=== PATIENT | male | born 1970 | race African-American/Black ===

== ENCOUNTER 2018-01-09 09:44 | Emergency (ER) | payer OTHER ==
[~2018-01-09] VITALS: Ht 175.3 cm; Wt 122.7 kg
[~2018-01-09 09:44] MED LIST: AZIT500T4 PO; COMBISP IH
[2018-01-09 09:46] VITALS: BP 160/109
[2018-01-09] MEDS ORDERED: HYDR25TA PO (09:52)
== END 2018-01-09 10:30 | disposition home or self-care (01) ==
LOC: EMS 09:45
DX: H00.015 Hordeolum externum left lower eyelid (principal); I10 Essential (primary) hypertension; F17.210 Nicotine dependence, cigarettes, uncomplicated
CPT/HCPCS: 99283

== ENCOUNTER 2019-05-02 03:12 | Emergency (ER) | payer MEDICAID ==
[~2019-05-02] VITALS: Ht 175.3 cm; Wt 125.0 kg
[~2019-05-02 03:12] MED LIST changes: -AZIT500T4 PO; -COMBISP IH; +HYDR25TA PO
[2019-05-02 04:15] LABS: BASOPHILS % (AUTO) 1.6 % (0.0-2.0); EOSINOPHILS % (AUTO) 1.3 % (1.0-6.0); HEMATOCRIT 43.4 % (41-53); HEMOGLOBIN 14.6 g/dL (13.5-17.5); LYMPHOCYTES # (AUTO) 1.2 K/uL (1.0-4.8); LYMPHOCYTES % (AUTO) 22.5 % (22.0-44.0); MEAN CORPUSCULAR HEMOGLOBIN 28.7 pg (26.0-34.0); MEAN CORPUSCULAR HGB CONC 33.7 G/dL (31.0-37.0); MEAN CORPUSCULAR VOLUME 85 fL (80-100); MONOCYTES # (AUTO) 0.4 K/uL (0.1-1.0); MONOCYTES % (AUTO) 6.7 % (2.0-9.0); NEUTROPHILS # (AUTO) 3.5 K/uL (1.8-7.7); NEUTROPHILS % (AUTO) 67.9 % (40.0-70.0); PLATELET COUNT (AUTO) 271 K/uL (150-450); RED BLOOD CELL COUNT(AUTO) 5.09 MIL/uL (4.50-5.90)
[2019-05-02 04:25] LABS: ANION GAP 8 mmol/L (8-16); CARBON DIOXIDE 28 mmol/L (22-29); CHLORIDE 103 mmol/L (98-107); CREATININE 1.02 mg/dL (0.60-1.30); GLOMERULAR FILTR. RATE CALC > 60 mL/min (>60); GLUCOSE,RANDOM 125 mg/dL (70-110); POTASSIUM 3.9 mmol/L (3.5-5.1); SODIUM SERUM 139 mmol/L (136-145); UREA NITROGEN, BLOOD 11 mg/dL (7-18)
[2019-05-02 04:31] LABS: ALANINE AMINOTRANSFERASE 27 U/L (12-78); ALBUMIN 3.7 g/dL (3.4-5.0); ALKALINE PHOSPHATASE 61 U/L (46-116); ASPARTATE AMINOTRANSFERASE 12 U/L (15-37); BILIRUBIN,TOTAL 0.3 mg/dL (0.1-1.0); TOTAL PROTEIN, SERUM 7.4 g/dL (6.4-8.2)
[2019-05-02 04:32] LABS: B-TYPE NATRIURETIC PEPTIDE 19 pg/mL (0-100)
[2019-05-02 06:00] VITALS: BP 143/82
== END 2019-05-02 07:54 | disposition home or self-care (01) ==
LOC: EMS 03:13
DX: J06.9 Acute upper respiratory infection, unspecified (principal); I48.91 Unspecified atrial fibrillation; I10 Essential (primary) hypertension; F17.210 Nicotine dependence, cigarettes, uncomplicated
CPT/HCPCS: 85379; 93005

== ENCOUNTER 2021-04-27 02:00 | Emergency (ER) | payer MEDICAID ==
[~2021-04-27] VITALS: Ht 175.3 cm; Wt 125.0 kg
[~2021-04-27 02:00] MED LIST changes: -HYDR25TA PO; +HYDR25TA2 PO
[2021-04-27] MEDS ORDERED: IBUPROFEN 400 MG TABLET PO ONE (04:30)
[2021-04-27] MEDS ORDERED: ACETAMINOPHEN 325 MG TABLET PO ONE (04:30)
[2021-04-27] MEDS ORDERED: LIDOCAINE 5% TRANSDERMAL PATCH TD ONE (04:30)
[2021-04-27] MEDS ORDERED: IBUP-2088 PO (08:05)
[2021-04-27] MEDS ORDERED: LIDO700A15 TP (08:05)
[2021-04-27] MEDS ORDERED: CYCL10TA17 PO (08:05)
[2021-04-27 08:47] VITALS: BP 151/104
== END 2021-04-27 08:49 | disposition home or self-care (01) ==
LOC: EMS 02:01
DX: M54.41 Lumbago with sciatica, right side (principal); I10 Essential (primary) hypertension; I48.91 Unspecified atrial fibrillation; F17.210 Nicotine dependence, cigarettes, uncomplicated; Z79.899 Other long term (current) drug therapy
CPT/HCPCS: 99284; Z7502; Z7610

== ENCOUNTER 2023-12-24 03:14 | Emergency (ER) | payer MEDICAID ==
[~2023-12-24 03:14] MED LIST changes: +CYCL-448 PO; +IBUP-2088 PO; +LIDO700A15 TP
[2023-12-24 03:17] VITALS: TEMP 98; O2SAT 100
[2023-12-24 03:24] VITALS: BP 180/70; PULSE 87; RESP 17; O2SAT 0
[2023-12-24] MEDS: BACITRACIN 28 GM OINTMENT TP ONE (03:45)
[2023-12-24] MEDS: KETOROLAC TROMETHAMINE 30 MG/ML VIAL IVP ONE ×2 (03:45→04:56)
[2023-12-24] MEDS: LIDOCAINE 1% 10 ML VIAL SQ ONE (03:45)
[2023-12-24] MEDS: ONDANSETRON HCL 4 MG/2 ML VIAL IVP ONE (03:45)
[2023-12-24] MEDS: MORPHINE SULFATE 10 MG/ML VIAL IVP ONE (03:56)
[2023-12-24] MEDS: HYDROmorphone HCL 2 MG/ML SYRINGE IVP ONE (04:56)
[2023-12-24] MEDS ORDERED: IBUP-1554 PO (06:20)
[2023-12-24] MEDS ORDERED: AMOX-457 PO (06:20)
[2023-12-24] MEDS ORDERED: BACI28.410 TP (06:20)
[2023-12-24] MEDS ORDERED: POLY119P3 PO (06:20)
[2023-12-24] MEDS ORDERED: HYDR-4072 PO (06:20)
== END 2023-12-24 07:06 | disposition home or self-care (01) ==
LOC: EMS 03:14
DX: S62.317A Displaced fracture of base of fifth metacarpal bone, left hand, initial encounter for closed fracture (principal); S03.2XXA Dislocation of tooth, initial encounter; S01.81XA Laceration without foreign body of other part of head, initial encounter; I10 Essential (primary) hypertension; F17.210 Nicotine dependence, cigarettes, uncomplicated; X58.XXXA Exposure to other specified factors, initial encounter; Y93.89 Activity, other specified; Y92.89 Other specified places as the place of occurrence of the external cause; Y99.8 Other external cause status
CPT/HCPCS: 99284; 96374; 96375; 73130 ×2; 12014; 96376; J1170; J1885; J2270; J2405; J3490

== ENCOUNTER 2023-12-29 10:13 | Emergency (ER) | payer MEDICAID ==
[~2023-12-29] VITALS: Ht 177.8 cm; Wt 100.0 kg
[~2023-12-29 10:13] MED LIST changes: +AMOX-457 PO; +BACI28.410 TP; +HYDR-4072 PO; +IBUP-1554 PO; +POLY119P3 PO
[2023-12-29 10:30] VITALS: BP 164/94; PULSE 90; RESP 18; TEMP 98; O2SAT 99
[2023-12-29] MEDS ORDERED: BACI28.410 TP (12:33)
[2023-12-29] MEDS ORDERED: HYDR-4072 PO (12:33)
[2023-12-29] MEDS: BACITRACIN 0.9 GM PACKET OINTMENT TP ONE (12:36)
== END 2023-12-29 13:21 | disposition home or self-care (01) ==
LOC: EMS 10:13
DX: S62.397A Other fracture of fifth metacarpal bone, left hand, initial encounter for closed fracture (principal); S01.512A Laceration without foreign body of oral cavity, initial encounter; Z48.00 Encounter for change or removal of nonsurgical wound dressing; F17.210 Nicotine dependence, cigarettes, uncomplicated; I10 Essential (primary) hypertension; W19.XXXA Unspecified fall, initial encounter; Y93.89 Activity, other specified; Y92.89 Other specified places as the place of occurrence of the external cause; Y99.8 Other external cause status
CPT/HCPCS: 99282; Z7502; Z7610